=== PATIENT | female | born 1960 | race Caucasian/White ===

== ENCOUNTER 2022-03-07 09:12 | Emergency (ER) | payer SELFPAY ==
[~2022-03-07] VITALS: Ht 160 cm; Wt 84.0 kg
[2022-03-07 15:11] LABS: CLARITY URINE CLOUDY (CLEAR); COLOR URINE DARK YELLOW (YELLOW); KETONES URINE 1+ (NEGATIVE); LEUKOCYTE ESTERASE URINE TRACE (NEGATIVE); NITRITE URINE POSITIVE (NEGATIVE); OCCULT BLOOD URINE TRACE (NEGATIVE); PROTEIN URINE NEGATIVE (NEGATIVE); SPECIFIC GRAVITY URINE 1.022 (1.005-1.030)
[2022-03-07 15:23] LABS: *AMPHETAMINES SCREEN URINE PRESUMTIVE POSITIVE (NEGATIVE); *BARBITURATES SCREEN URINE NEGATIVE (NEGATIVE); *BENZODIAZEPINES SCREEN URINE NEGATIVE (NEGATIVE); *COCAINE SCREEN URINE NEGATIVE (NEGATIVE); CANNABINOID URINE SCREEN NEGATIVE (NEGATIVE); METHADONE URINE SCREEN NEGATIVE (NEGATIVE); OPIATES URINE SCREEN NEGATIVE (NEGATIVE); PHENCYCLIDINE URINE SCREEN NEGATIVE (NEGATIVE)
[2022-03-07] MEDS ORDERED: IBUP-2029 PO (15:48)
[2022-03-07] MEDS ORDERED: DIVA500T3 PO (15:48)
[2022-03-07] MEDS ORDERED: SULF1TAB48 PO (15:48)
[2022-03-07 16:06] VITALS: BP 137/92
== END 2022-03-07 16:07 | disposition home or self-care (01) ==
LOC: ER 09:12
DX: N39.0 Urinary tract infection, site not specified (principal); M25.552 Pain in left hip; M25.562 Pain in left knee; M79.652 Pain in left thigh; G89.11 Acute pain due to trauma; R26.89 Other abnormalities of gait and mobility; Y04.8XXA Assault by other bodily force, initial encounter; Y93.89 Activity, other specified; Y92.89 Other specified places as the place of occurrence of the external cause
CPT/HCPCS: 73502; 73562; 80305; 81003; 99284